=== PATIENT | female | born 1970 | race Caucasian/White ===

== ENCOUNTER 2025-02-26 19:22 | Emergency (ER) | payer BC ==
--- OUTSIDE RECORDS SUMMARY | 2025-02-26 19:25 | XMS REPORT | Continuity of Care Document ---
Author Name Unknown Address [address] [place] [address] [facility] [place] Address [address] [place] [address] Care Team Providers Care Health Coordinator Name Role Phone Jac Burt Attending Clinician Unavailable ADRIANNE CONSTANTINO Attending Clinician Unavail able Adrianne Constantino DPM Attending Clinician [phone] Salomon Caicedo Attending Clinician SALOMON Bernal Attending Clinician Unavailable Salomon Caicedo Admitting Clinician Martha ennis Physician, No Primary or Family Admitting Clinic vick Unavailable Payers Payer Name Policy Type Policy Number Effective Date Expirati on Date Source BCBS COMM [id number] 2022 00:00:00 Problems Condition Name Condition Details Condition Category Status Onset Date Resolution Date Last Treatment Date Treating Clinician Comments Source Menopausal symptom Menopausal Symptom Problem Active 02-06 00:00: 00 [facility] Social History Social Habit Start Date Stop Date Quantity Comments Source ASSERTION Possible [facility] Gender identity Maxi adenike [facility] Sexual orientation [facility] Smoking Status Start Date Stop Date Source Never Smoker [facility] Tobacco smoking consumption unknown [facility] Medications Ordered Medication Name Filled Medication Name Start Date Stop Date Current Medication? Ordering Clinician Indication Dosage Frequency Signature (SIG) Comments Components Source Climara Pro 0.045 mg-0.015 mg/24 hr transdermal patch Apply 1 patch every week by transdermal route. Climara Pro 0.045 mg-0.015 mg/24 hr transdermal patch Apply 1 patch every week by transdermal route. No 1patch( es) Q1W Climara Pro 0.045 mg-0.015 mg/24 hr transderma l patch Apply 1 patch every week by transderma l route. [facility] Vital Signs Vital Name Observation Time Observation Value Comments S ource Height 2025-01-08 00:00:00 66 [in_i] [facility] BP Systolic 2025-01-08 00:00:00 95 mm[Hg] [facility] Body Weight 2025-01-08 00:00:00 128.98 [facility]lb_av[facility] BMI (Body Mass Index) 2025-01-08 00:00:00 20.8 kg/m2 [facility] BP Diastolic 2025-01-08 00:00:00 62 mm[Hg] [facility] Body Weight 2024-01-10 00:00:00 132 [lb_av] [facility] BP Diastolic 2024-01-10 00:00:00 71 mm[Hg] [facility] BP Systolic 2024-01-10 00:00:00 102 mm[Hg] [facility] Height 2024-01-10 00:00:00 66 [in_i] [facility] BMI (Body Mass Index) 2024-01-10 00:00:00 21.3 kg/m2 [facility] Weight 2023-12-03 00:00:00 132 [lb_av] [facility] BP Systolic 2023-11-25 00:00:00 108 mm[Hg] [facility] Body Weight 2023-11-25 00:00:00 132 [lb_av] [facility] BP Diastolic 2023-11-25 00:00:00 68 mm[Hg] [facility] Procedures Procedure Date / Time Performed Performing Clinicia n Source US PELVIC NONOBSTETRIC REAL-TIME IMAGE COMPLETE 2025-01-08 00:00:00 [facility] MAMMO, screening, digital, bilateral 2024-01-10 00:00:00 [facility] Tubal Ligation 1997-06-10 00:00:00 [facility] Encounters Start Date/Time End Date/Time Encounter Type Admission Type Attending Clinicians Care Facility Care Department Encounter ID Source 2025-01-20 00:00:00 2025-01-20 00:00:00 Lonnie Hendrickson MD: [id number], [address], [place] [address] , Ph. [facility]* [id number] [facility] 2025-01-08 00:00:00 2025-01-08 00:00:00 Lonnie Hendrickson MD: [place] [address] , Ph. [facility] [id number] [facility] 2024-10-01 08:00:00 2024-10-01 08:00:00 Outpatient ROSALIND Burt Jac [facility] [id number] [facility] 2024-08-19 12:59:26 2024-08-19 14:15:16 [facility] [id number] [facility] 2024-08-05 09:52:43 2024-08-05 10:58:56 Outpatient Elect[facility] [id number] [facility] 2024-08-05 09:40:00 2024-08-05 10:58:56 Consult Adrianne Constantino [facility] [id number] [facility] 2024-01-10 00:00:00 2024-01-10 00:00:00 Lonnie Hendrickson MD: [place] [address] , Ph. [facility] Office [id number] [facility] 2023-12-03 00:00:00 2023-12-03 00:00:00 Lonnie Hendrickson MD: [address], [address], [place] [address] , Ph. [facility] Office* [id number] [facility] 2023-11-25 00:00:00 2023-11-25 00:00:00 Lonnie Hendrickson MD: [address], [address], [place] [address] , Ph. [facility] Office* [id number] [facility] 2023-06-18 12:00:00 2023-06-18 12:00:00 Outpatient Salomon Hernandez [facility] [id number] [facility] 2022-06-12 12:00:00 2022-06-12 12:00:00 Outpatient Salomon Hernandez [facility] [id number] [facility] 2021-05-30 12:00:00 2021-05-30 12:00:00 Outpatient Salomon Hernandez [facility] [id number] [facility] 2020-05-27 12:00:00 2020-05-27 12:00:00 Outpatient SALOMON HERNANDEZ [facility] [id number] [facility] Results Test Description Test Time Test Comments Results Result Co mments Source [facility] MedicalTestosterone free and total panel [Mass/volume] - Serum or Plasma 2023-11-26 00:00:00* Test Item Value Reference Range Interpretation Comme nts free testosterone (test code = free testosterone) 0.02 NG/dL 0.12-0.64 L sex hormone binding globulin (test code = sex hormone binding globulin) 106.00 nmol/L 10.00-57.00 H testosterone (test code = testosterone) < 2.5 8.4-48.1 L [facility] - Serum or [id number] 00:00:00* Test Item Value Reference Range Interpretation Comme nts TSH (test code = TSH) 1.830 uIU/mL 0.500-4.530 free T4 (test code = free T4) 1.17 NG/dL 0.80-1.73 [facility] Gzwjcyc14-Xfmegbofuufnhq D3+25-Hydroxyvitamin D2 [Mass/volume] in Serum or [id number] 00:00:00* Test Item Value Reference Range Interpretation Comme nts vitamin D III (test code = v itamin D III) 51.6 NG/mL 32.0-100.0 [facility] Notes Date/Time Note Provider [id number] 11:04:09* Adrianne Constantino, [facility] - 08/05/2024 9:40 AM PHLEBOTOMIST ASSOCIATE CHIEF COMPLAINT: NEUROMA, 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 HISTORY OF PRESENT ILLNESS: Patient is a long distance runner, 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 Patient states she was jump roping for [employer], and felt pain in her right forefoot, starting approximately JUNE 2024 Patient states some improvements the pain with metatarsal pad Patient states painful shooting in the toes and numbness Patient denies trauma Patient states pain currently rated 4/10 on palpation, right 3rd intermetatarsal space PHYSICAL EXAM OF THE LOWER EXTREMITY: Vascular (-) edema, (-) ecchymosis, (-) erythema Dorsal pedis pulse, bilateral - 2/4; Posterior tibial pulse, bilateral- 2/4 Capillary Refill time: within normal limits (-) varicosities, (+) pedal hair growth Neurological (+) specialty molder's click to the RIGHT 3rd interspace (+) sensation with 5.07 [place] Venancio monofilament examination to the most distal lower extremity (-) tinel's sign (-) clonus Dermatological (-) signs of infection, (-) open wounds, (-) abscess (-) other primary or secondary lesions (+) normal temperature when compared to contralateral limb (+) normal color, tugor, and elasticity Musculoskeletal (+) pain on palpation RIGHT 3rd interspace (-) pain with lochmans test to all digits at the metatarsal phalangeal joint (-) pain with impaction or distraction on range of motion at the metatarsal phalangeal joint to all digits (+) equinus, bilateral (+) flexible pes planus foot type, bilateral 5/5 muscle strength to extrinsic pedal muscle groups (-) evidence of compartment syndrome, (-) evidence of deep vein thrombosis ASSESSMENT: Neuroma, 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 Patient tolerated injection well without complications, patient had immediate improvements and very satisfied with results - Strapping/Padding- continue metatarsal pad - X-rays - ORDERED 07/16/2024 - Orthotics - discussed custom orthotics with metatarsal pad - Medication - ibuprofen 800mg three times per day x14 days. Patient understands bleeding and gastric risks associated with medication - Weight bearing - reduce weight bearing, obtain new well padded sneakers (asics or new balance) - Therapy - discussed - shoe gear- patient educated -Return 2 weeks after marathon (08/08/2024) in [place] Patient advised to report to my clinic or the emergency room immediately with any questions or concerns.Patient Instructions: Discussion: A detailed discussion was provided to the patient with specific reference to etiology, pathology, alternate treatment options, and prognosis. All risks and complications (including side effects) with each treatment/medication alternative were outlined in detail including but not limited to: Pain, swelling, numbness,loss of function, loss of limb, bleeding, hematoma, scarring, failure to relieve condition, surgery, additional/revisional surgery, reflex sympathetic dystrophy, complex regional pain syndrome, reoccurrence of deformity, joint stiffness, flail toe, bone and/or soft tissue infection, blood clots, pulmonary embolism, possible , delayed or non-healing. X-rays, graphs and drawings were all used to assist with patient comprehension when appropriate. All patients questions were answered and stated they fully understood. No guarantee as to results or outcome of treatment was made. I have discussed with the patient or legally responsible person prior to obtaining consent: the risks, potential benefits and drawbacks, significant alternatives, potential for problems related to recuperation, likelihood of success, and possible results of non-treatment, and the patient or the legally responsible person has agreed to proceed. [facility]2025-02-26 11:04:09Upcoming Encounters Health Maintenance Due Date Last Done Comments CT Colonography 1970 Colonoscopy 1970 Colorectal Cancer Screening 1970 FIT-DNA 1970 FIT 1970 FOBT 1970 Sigmoidoscopy 1970 Annual Physical 1973 DTaP/Tdap/Td Vaccines (1 - Tdap) 1989 Hepatitis B Vaccines (1 of 3 - 19+ 3-dose series) 1989 Pap Smear 1991 Cervical Cancer Screening 2000 HPV/Cotest 2000 Mammogram 2010 Zoster Vaccines (1 of 2) 2020 Influenza Vaccine (#1) 2024 HIB Vaccines Aged Out No longer eligi ble based on patient's age to complete this topic HPV Vaccines Aged Out No longer eligi ble based on patient's age to complete this topic Hepatitis A Vaccines Aged Out No long er eligible based on patient's age to complete this topic IPV Vaccines Aged Out No longer eligi ble based on patient's age to complete this topic Meningococcal Vaccine Aged Out No cassidy darrell eligible based on patient's age to complete this topic Pneumococcal Vaccine: Pediat rics (0 to 5 Years) and At-Risk Patients (6 to 64 Years) Aged Out No longer eligible b ased on patient's age to complete this topic Rotavirus Vaccines Aged Out No longer eligible based on patient's age to complete this topic Gabino Johns
[2025-02-26] MEDS ORDERED: NA CHLORIDE 0.9% 1,000 ML ONE ×2 (20:08→20:14)
[2025-02-26 20:25] LABS: Absolute Lymphocytes (CBC) 2.6 K/uL (0.7-4.9); Hematocrit 40.9 % (36.0-45.0); Hemoglobin 13.8 g/dL (12.0-15.0); MCH 28.7 pg (27.0-35.0); MCHC 33.6 g/dL (32.0-36.0); MCV 85.5 fL (80-100); MPV 8.8 fL (7.6-11.3); Nucleated RBC Absolute Count 0.0 (0-0); Nucleated Red Blood Cells % 0.2 % (0-0); RBC Red Blood Cell Count 4.79 M/uL (3.86-4.86); White Blood Count 7.10 thou/uL (4.3-10.9)
[2025-02-26 20:52] LABS: ALT/SGPT 27.0 U/L (13-56); AST/SGOT 21.0 U/L (15-37); Albumin 3.9 g/dL (3.4-5.0); Albumin/Globulin Ratio 1.2 (1.1-1.8); Alkaline Phosphatase 70.0 U/L (45-117); Anion Gap 7.9 mEq/L (5.0-15.0); BUN Blood Urea Nitrogen 20.0 mg/dL (7-18); Globulin 3.2 g/dL (2.3-3.5); Glucose Level 110.0 mg/dL (74-106); Potassium 3.9 mEq/L (3.5-5.1); Troponin High Sensitivity 36.4 pg/mL (<58.9)
--- NOTE | 2025-02-26 20:57 | RAD REPORT ---
EXAMINATION: Head C Spine Mpr Wo Con CLINICAL INDICATION: Female, 54 years old. TRAUMA TECHNIQUE: Axial CT images from the skull base to the vertex without intravenous contrast. Axial CT i mages through the cervical spine were obtained without intravenous contrast. Sagittal and coronal reformatted images were created from the data set. Coronal and sagittal reformatted images were creat ed from the data set. One or more of the following dose reduction techniques were used: Automated exposure control, adjustment of the mA and/or kV according to patient size, and/or iterative reconstr uction. Unless otherwise specified, incidental findings do not require dedicated imaging follow-up. [id number]. COMPARISON: No prior exams FINDINGS: Head: INTRACRANIAL: No acute intracranial hemorrhage. No acute large vascular territory infarct. No hydroce phalus. No mass effect or midline shift. No significant white matter disease. VASCULATURE: No visualized abnormalities in the arteries or dural venous sinuses. SCALP/SKULL: No calvarial fracture identified. No acute soft tissue abnormality. SINUSES: The visualized paranasal sinuses are mostly clear. No significant mastoid fluid. Cervical spine: ALIGNMENT: The cervical spine has normal alignment without scoliosis or spondylolisthesis. BONE: Vertebral body heights are maintained. No aggressive osseous lesions. DEGENERATIVE: Multilevel spondylosis including mild left neural foraminal narrowing at C3-4 and C5-6. . SOFT TISSUE: No significant abnormalities in the soft tissue of the neck. The visualized lung apices are clear. IMPRESSION: No acute intracranial abnormality. No acute fracture or traumatic malalignment of the cervical spine.
--- NOTE | 2025-02-26 21:14 | RAD REPORT ---
EXAM: Chest Single View HISTORY: 54 years Female MALAISE COMPARISON: No prior exams FINDINGS: LUNGS/PLEURA: The lungs are clear. No pleural effusions or pneumothorax. No pulmonary edema. CARDIAC/MEDIASTINUM: The cardiac silhouette is within normal limits. UPPER ABDOMEN: No significant abnormality. BONES: No acute abnormality. LINES/TUBES/OTHER: N/A IMPRESSION: No evidence of acute cardiopulmonary disease.
--- NOTE | 2025-02-26 21:31 | EDPHYS ---
Physician Documentation [facility] Name: Aleena Luna Age: 54 yrs Sex: Female : 1970 Arrival Date: 02/26/2025 Time: 19:22 Bed 3 Private MD: ED Physician Tr Carter HPI: 02/26 19:54 This 54 yrs old Female presents to ER via Ambulatory with complaints of Passed Out tt7 Prior To Arrival, Head Injury-Adult. 19:54 The patient has experienced syncope. Onset: The symptoms/episode began/occurred 30 tt7 minute(s) ago. Duration: This was a single episode, that lasted 10 second(s). Context: occurred at a store. Associated injury: Head/face: right side of the back of head, pain, swelling, tenderness. Associated signs and symptoms: Pertinent positives: abdominal pain, lightheadedness, Pertinent negatives: chest pain, diaphoresis, numbness, palpitations, seizure, tingling, vertigo, vomiting, weakness. Current symptoms: headache, that is mild. The patient has experienced a previous episode, many years ago. Had brief abdominal cramp and felt like she had to have a bowel movement then became lightheaded and passed out, she occasionally has abdominal cramps when she needs to defecate, has hx of lactose intolerance and ate a slice of pizza today. Historical: - Allergies: 19:49 No Known Allergies; ha1 - PMHx: 19:49 None; ha1 - PSHx: 19:49 TUBAL LIGATION; ha1 - Immunization history:: Adult Immunizations up to date. - Infectious Disease History:: Denies. - Social history:: Smoking status: Patient denies any tobacco usage or history of. ROS: 19:58 Constitutional: negative for fever. Cardiovascular: positive for syncope, negative for tt7 chest pain. Respiratory: negative for shortness of breath. MS/Extremity: negative for injury and deformity. Skin: negative for rash. Neuro: negative for focal weakness. 19:58 Abdomen/GI: Positive for abdominal cramps, Negative for nausea, vomiting, and diarrhea, 19:59 Back: Negative for injury and pain, tt7 Exam: 19:59 Constitutional: vital signs reviewed, well appearing. Head/Face: normocephalic, tt7 moderate size hematoma to right parietal scalp, no laceration, no palpable skull fracture Eyes: no conjunctival injection, anicteric sclerae, PERRL. ENT: mucus membranes moist. Neck: trachea midline, no JVD, no meningismus, c spine without stepoff/deformity, no c spine tenderness. Chest/axilla: normal chest wall appearance and motion, nontender, no crepitus. Cardiovascular: regular rate and rhythm, no murmurs, no rubs, no lower extremity edema. Respiratory: normal respiratory effort, no accessory muscle use, lungs CTAB. Abdomen/GI: soft, nondistended, nontender, no guarding or rebound, negative Nava's sign, no McBurney point tenderness. Back: normal ROM, no stepoff/deformity, nontender. Skin: warm, dry, intact, normal turgor, normal color, no rash. MS/ Extremity: normal ROM of extremities, no gross deformities. Neuro: alert and oriented with appropriate mental status, normal speech, follows commands, no focal neurologic deficits. Psych: appropriate mood and affect. Vital Signs: 19:35 BP 119 / 63; Pulse 65; Resp 18 S; Temp 97.2; Pulse Ox 100% on R/A; Weight 58.06 kg; ha1 Height 5 ft. 5 in. ; Pain 7/10; 21:54 BP 109 / 70; Pulse 67; Resp 17 S; Pulse Ox 100% on R/A; lg3 19:35 Body Mass Index 21.30 (58.06 kg, 165.1 cm) ha1 19:35 Pain Scale: Adult ha1 Medina Coma Score: 19:35 Eye Response: spontaneous(4). Motor Response: obeys commands(6). Verbal Response: ha1 oriented(5). Total: 15. 20:26 Eye Response: spontaneous(4). Motor Response: obeys commands(6). Verbal Response: mf3 oriented(5). Total: 15. MDM: 19:44 Medical Screening Exam initiated tt7 20:01 Differential Diagnosis: cardiac arrhythmia, idiopathic syncope, vasovagal episode, ICH, tt7 ACS. Data reviewed: vital signs, nurses notes. Historians other than the Patient: Parent: . 20:27 Data reviewed: EKG. ED course: I have reviewed and independently interpreted the tt7 patient's EKG performed on 02/26/2025 at 2024. On my interpretation, normal sinus rhythm, ventricular rate 68 bpm, normal axis, normal QRS interval, normal ST segments, no STEMI. 21:26 Data reviewed: lab test result(s), cardiac enzymes, CBC, electrolytes, radiologic tt7 studies, CT scan, plain films. Independent interpretation of the following test(s) in the Emergency Department EKG: See my EKG interpretation above X-Ray: My interpretation is I have reviewed and independently interpreted the patient's chest x-ray. On my interpretation, chest x-ray demonstrates no radiographic evidence of acute cardiopulmonary disease. CT Scan: My interpretation is No acute intracranial abnormality, no acute osseous abnormality of the cervical spine. Test considered but Not performed: Ultrasound Considered aortic ultrasound to assess for aortic aneurysm but did not feel this was necessary given the patient's symptoms were brief and have totally resolved, symptoms have occurred before and are totally relieved by bowel movement, lack of risk factors, and no physical exam findings to support this diagnosis. CT: Considered CT angiogram of the aorta to assess for aortic aneurysm but did not feel this was necessary given the patient's symptoms were brief and have totally resolved, symptoms have occurred before and are totally relieved by bowel movement, lack of risk factors, and no physical exam findings to support this diagnosis. ED course: Laboratory studies reassuring, EKG without acute ischemic findings, imaging studies do not show any acute abnormalities, emergency department evaluation is reassuring. I do not suspect life-threatening process. Patient is stable and not in need of emergent medical intervention. I had a detailed discussion with the patient regarding the historical points, exam findings, emergency department evaluation, diagnostic results, and the discharge diagnosis. I discussed outpatient management of the patient's condition. I discussed the need for outpatient follow-up with primary care and relevant specialist. I discussed return precautions including the need to return to the ED if symptoms do not improve, worsen, or if there are any questions or concerns that arise at home. The patient was discharged in stable condition. 02/26 19:52 Order name: CBC with Diff; Complete Time: 20:42 tt7 02/26 19:52 Order name: Troponin HS; Complete Time: 20:52 tt7 02/26 19:52 Order name: CMP; Complete Time: 20:52 tt7 02/26 19:52 Order name: XRAY Chest (1 view); Complete Time: 21:21 tt7 02/26 19:52 Order name: CT Head C Spine; Complete Time: 21:02/26 19:52 Order name: EKG; Complete Time: :02/26 19:52 Order name: Cardiac monitoring; Complete Time: 20:02/26 19:52 Order name: EKG - Nurse/Tech; Complete Time: 20:02/26 19:52 Order name: IV Saline Lock; Complete Time: :02/26 19:52 Order name: Labs collected and sent; Complete Time: 20:02/26 19:52 Order name: O2 Per Protocol; Complete Time: :02/26 19:52 Order name: O2 Sat Monitoring; Complete Time: : Administered Medications: 20:25 Drug: NS 0.9% IV 1000 ml IV at 1000 ml once; to be given as a bolus over 60 minutes lg3 Route: IV; Rate: 1000 ml; Site: right antecubital; 21:53 Follow up: Response: No adverse reaction; IV Status: Completed infusion; IV Intake: lg3 1000ml Disposition: 21:31 Co-signature as Attending Physician, Tr Carter DO. tt7 Disposition Summary: 02/26/25 21:30 Discharge Ordered Notes: Location: Home tt7 Problem: an acute exacerbation tt7 Symptoms: are resolved tt7 Condition: Stable tt7 Diagnosis - SYNCOPE tt7 - CLOSED HEAD INJURY tt7 Followup: tt7 - With: Emergency Department - When: As needed - Reason: Followup: tt7 - With: Private Physician - When: 1 - 2 days - Reason: Recheck today's complaints, Re-evaluation by your physician Discharge Instructions: - Discharge Summary Sheet tt7 - Syncope, [id number] tt7 - Vasovagal Syncope, Pediatric tt7 Forms: - Medication Reconciliation Form tt7 - Antibiotic Education tt7 - Prescription Opioid Use tt7 - Patient Portal Instructions tt7 - Leadership Thank You Letter tt7 Signatures: Dispatcher [employer] Kinza Trevino RN RN lg3 Julienne Crouch RN RN ha1 Tr Carter DO DO tt7
--- NOTE | 2025-02-26 21:31 | ER ---
Nurse's Notes [facility] Name: Aleena Luna Age: 54 yrs Sex: Female : 1970 Arrival Date: 02/26/2025 Time: 19:22 Bed 3 Private MD: Diagnosis: SYNCOPE;CLOSED HEAD INJURY Presentation: 02/26 19:35 Chief complaint: Patient states: I WAS DRIVING AND DEVELOPED STOMACH CRAMPING, IT FELT ha1 LIKE I NEEDED TO HAVE A BOWEL MOVEMENT SO STOPPED DRIVING. AND WHEN I GOT OUT OF THE CAR I PASSED OUT. LUMP ON THE BACK OF HEAD AND HEADACHE. 19:35 Coronavirus screen: Client denies travel out of the [place] in the last 14 days. Ebola ha1 Screen: No symptoms or risks identified at this time. Mechanism of Injury: resulted from a fall. Initial Sepsis Screen: Does the patient meet any 2 criteria? No. Patient's initial sepsis screen is negative. Does the patient have a suspected source of infection? No. Patient's initial sepsis screen is negative. Risk Assessment: Do you want to hurt yourself or someone else? Patient reports no desire to harm self or others. 19:35 Method Of Arrival: Ambulatory ha1 19:35 Acuity: ERICK 2 ha1 Triage Assessment: 19:49 General: Appears uncomfortable, Behavior is cooperative. Pain: Complains of pain in ha1 HEAD Pain currently is 7 out of 10 on a pain scale. Quality of pain is described as aching, crampy. Neuro: Level of Consciousness is awake, alert, obeys commands, Oriented to person, place, time, situation, Reports headache. Cardiovascular: Capillary refill < 3 seconds Patient's skin is warm and dry. Respiratory: Airway is patent Respiratory effort is even, unlabored, Respiratory pattern is regular, symmetrical. Historical: - Allergies: 19:49 No Known Allergies; ha1 - PMHx: 19:49 None; ha1 - PSHx: 19:49 TUBAL LIGATION; ha1 - Immunization history:: Adult Immunizations up to date. - Infectious Disease History:: Denies. - Social history:: Smoking status: Patient denies any tobacco usage or history of. Screenin:26 [facility] ED Fall Risk Assessment (Adult) History of falling in the last 3 months, mf3 including since admission No falls in past 3 months (0 pts) Confusion or Disorientation No (0 pts) Intoxicated or Sedated No (0 pts) Impaired Gait No (0 pts) Mobility Assist Device Used No (0 pt) Altered Elimination No (0 pt) Score/Fall Risk Level 0 - 2 = Low Risk. [facility] ED Fall Risk Assessment (Adult) Score/Fall Risk Level 0 - 2 = Low Risk Oriented to surroundings, Maintained a safe environment, Educated pt \T\ family on fall prevention, incl call for assistance when getting out of bed. Abuse screen: Denies threats or abuse. Denies injuries from another. Nutritional screening: No deficits noted. Tuberculosis screening: No symptoms or risk factors identified. Assessment: 20:26 General: Appears in no apparent distress. Behavior is calm, cooperative, appropriate mf3 for age. Pain: Complains of pain in scalp Pain does not radiate. Pain currently is 4 out of 10 on a pain scale. Neuro: Level of Consciousness is awake, alert, obeys commands, Oriented to person, place, time. Cardiovascular: Capillary refill < 3 seconds. Respiratory: Airway is patent Trachea midline Respiratory effort is even, unlabored. GI: No signs and/or symptoms were reported involving the gastrointestinal system. 21:54 Reassessment: Patient appears in no apparent distress at this time. No changes from lg3 previously documented assessment. Patient and/or family updated on plan of care and expected duration. Pain level reassessed. Patient is alert, oriented x 3, equal unlabored respirations, skin warm/dry/pink. Patient states feeling better. Patient states symptoms have improved. Vital Signs: 19:35 BP 119 / 63; Pulse 65; Resp 18 S; Temp 97.2; Pulse Ox 100% on R/A; Weight 58.06 kg; ha1 Height 5 ft. 5 in. ; Pain 7/10; 21:54 BP 109 / 70; Pulse 67; Resp 17 S; Pulse Ox 100% on R/A; lg3 19:35 Body Mass Index 21.30 (58.06 kg, 165.1 cm) ha1 19:35 Pain Scale: Adult ha1 Kalia Coma Score: 19:35 Eye Response: spontaneous(4). Motor Response: obeys commands(6). Verbal Response: ha1 oriented(5). Total: 15. 20:26 Eye Response: spontaneous(4). Motor Response: obeys commands(6). Verbal Response: mf3 oriented(5). Total: 15. ED Course: 19:25 Patient arrived in ED. mr 19:44 Tr Carter DO is Attending Physician. tt7 19:49 Triage completed. ha1 20:25 Coco Moore, RN is Primary Nurse. mf3 20:26 Patient has correct armband on for positive identification. Bed in low position. Call mf3 light in reach. Side rails up X2. Provided Education on: pt educated on plan of care. 20:26 Arm band placed on right wrist. lg3 20:26 No provider procedures requiring assistance completed. Inserted saline lock: 20 gauge mf3 in right antecubital area, using aseptic technique. 20:36 CT Head C Spine In Process Unspecified. EDMS 20:58 XRAY Chest (1 view) In Process Unspecified. EDMS 21:55 IV discontinued, intact, bleeding controlled, No redness/swelling at site. Pressure lg3 dressing applied. Administered Medications: 20:25 Drug: NS 0.9% IV 1000 ml IV at 1000 ml once; to be given as a bolus over 60 minutes lg3 Route: IV; Rate: 1000 ml; Site: right antecubital; 21:53 Follow up: Response: No adverse reaction; IV Status: Completed infusion; IV Intake: lg3 1000ml Medication: 20:26 VIS not applicable for this client. mf3 Intake: 21:53 IV: 1000ml; Total: 1000ml. lg3 Outcome: 21:30 Discharge ordered by MD. tt7 21:54 Discharged to home ambulatory, with family, lg3 21:54 Condition: stable 21:54 Discharge instructions given to patient, Instructed on discharge instructions, follow up and referral plans. Demonstrated understanding of instructions, follow-up care, 21:55 Patient left the ED. lg3 Signatures: Dispatcher [employer] EDIA Jairo Piedad, Jozef Reg mr Kinza Khan, RN RN 3 Julienne Crouch RN RN 1 Coco Moore RN RN [facility] Tr Carter DO DO tt7
[2025-02-26 22:00] VITALS: TEMP 97.2; O2SAT 100
[2025-02-26 22:01] VITALS: BP 109/70
== END 2025-02-26 21:55 | disposition home or self-care (01) ==
LOC: ER 19:22
DX: R55 Syncope and collapse (principal); S09.90XA Unspecified injury of head, initial encounter
CPT/HCPCS: 93005; 85025; 36415; 84484; 80053; 70450; 72125; 71045; 96360; 99284; J7030 ×2